=== PATIENT | male | born 1945 | race Two or more races ===

== ENCOUNTER 2016-12-28 08:37 | Emergency (ER) | payer MEDICARE, OTHER ==
[~2016-12-28] VITALS: Ht 175.3 cm; Wt 61.6 kg
[~2016-12-28 08:37] MED LIST: ATOR1TAB18 PO; LISI10TA3 PO; METF500T PO; METO25TA3 PO; PLAV75TA29 PO
[2016-12-28 08:44] VITALS: BP 141/79; PULSE 72; RESP 16; TEMP 96.8; O2SAT 99
[2016-12-28] MEDS ORDERED: BUSP5TAB PO (09:11)
--- NOTE | 2016-12-28 09:14 | PD ---
HPI . Trip and fall Chief Complaint: Fall Time Seen by Provider: 09:03 Travel History International Travel<30 days: No Contact w/Intl Traveler<30days: No Traveled to known affect area: No History of Present Illness HPI Patient suffered a mechanical fall yesterday. He landed on his face. He states his dentures broke and cut his mouth. His main concern is continued bleeding from his mouth. He is on Plavix. Bleeding has been unrelieved by gauze. Bleeding has been mild but continuous. Tetanus is up-to-date. He also has some pain and swelling of the left cheek and some neck pain. PFSH Past Medical History Hx Anticoagulant Therapy: Yes Arthritis: No Autoimmune Disease: No Anxiety: Yes Heart Rhythm Problems: No Cancer: No Cardiac Catheterization: Yes Cardiovascular Problems: Yes (htn on meds, MD , 4 vessel bypass) High Cholesterol: Yes Chest Pain: Yes Congestive Heart Failure: No Cerebrovascular Accident: Yes (cva) Coronary Artery Disease: Yes Diabetes: Yes Patient Takes Glucophage: Yes Diminished Hearing: No Endocrine: Yes Gastrointestinal Disorders: Yes GERD: Yes (takes Zantac PRN) Glaucoma: No Genitourinary: No Headaches: No Hepatitis: No Hiatal Hernia: No Hypertension: Yes Immune Disorder: No Implanted Vascular Access Dvce: No Musculoskeletal: Yes Neurologic: Yes Psychiatric: No Reproductive: No Respiratory: No Integumentary: No Migraines: No Myocardial Infarction: Yes (x1) Seizures: No Thyroid Disease: No Ulcer: No Tetanus Vaccination: < 5 Years Influenza Vaccination: Yes Past Surgical History Abdominal Surgery: No Cardiac Surgery: Yes (CABG 2000 and cardiac stent 2013) Coronary Artery Bypass Graft: Yes (x4) Coronary Stent: Yes (x1) Ear Surgery: No Endocrine Surgery: No Eye Surgery: No Genitourinary Surgery: No Gynecologic Surgery: No Neurologic Surgery: No Oral Surgery: No Thoracic Surgery: No Other Surgery: Yes Family History Family Myocardial Infarction: Yes Social History Alcohol Use: No Tobacco Use: No (years ago hx of cigs) Substance Use: No Allergies-Medications (Allergen,Severity, Reaction): Coded Allergies: No Known Allergies (Verified , 12/28/16) Reported Meds & Prescriptions Reported Meds & Active Scripts Active Reported Buspirone (Buspirone HCl) 5 Mg Tab 5 Mg PO BID Metoprolol Tartrate 25 Mg Tab 25 Mg PO BID Metformin (Metformin HCl) 500 Mg Tab 250 Mg PO BIDPC With meals Lisinopril 10 Mg Tab 10 Mg PO DAILY Plavix (Clopidogrel Bisulfate) 75 Mg Tab 75 Mg PO DAILY Review of Systems Except as stated in HPI: all other systems reviewed are Neg Eyes: No: Blurred Vision HENT: Positive: Gingival Bleeding, No: Nosebleed Gastrointestinal: No: Nausea, Vomiting Neurologic: No: Syncope, Focal Abnormalities, Headache, Change in Mentation, Slurred Speech Physical Exam Narrative GENERAL: Awake and alert and in no acute distress. SKIN: Warm and dry. HEAD: Swelling of the left cheek. Fresh blood in the oropharynx. No diffuse bleeding. EYES: Pupils equal and round. NECK: Trachea midline. C-spine is immobilized with a [place] collar. CARDIOVASCULAR: Regular rate and rhythm. RESPIRATORY: No accessory muscle use. MUSCULOSKELETAL: No obvious deformities. No edema. NEUROLOGICAL: Awake and alert. No obvious cranial nerve deficits. Motor grossly within normal limits. Normal speech. PSYCHIATRIC: Appropriate mood and affect; insight and judgment normal. Data Data Last Documented VS Vital Signs Date Time Temp Pulse Resp B/P Pulse Ox O2 Delivery O2 Flow Rate FiO2 12/28/16 08:44 96.8 72 16 141/[address] Cerv Spine W/O Contrast (12/28/16 09:04) Ct Facial Bones W/O Iv Cont (12/28/16 09:04) MDM Medical Decision Making Medical Screen Exam Complete: Yes Emergency Medical Condition: Yes Differential Diagnosis Differential diagnosis of facial trauma includes but is not limited to soft tissue contusion, abrasions, laceration, nasal fracture, orbital fracture, zygomatic fracture Narrative Course Patient presents for evaluation of injuries sustained in a fall yesterday. His main concern is continued oral bleeding. His dentures were broken in the fall causing a cut in the mouth. He also has an injury to the left cheek and is complaining with neck pain. He does not have any neurological complaints. Last Impressions Maxillofacial CT 12/28/16903 Signed Impressions: Service Date/Time: Wednesday, December 28, 2016 09:24 - CONCLUSION: 1. Left-sided facial and periorbital soft tissue swelling. 2. No orbital or facial fracture. Leon Whitley MD Cervical Spine CT 12/28/16903 Signed Impressions: Service Date/Time: Wednesday, December 28, 2016 09:24 - CONCLUSION: 1. Multilevel degenerative change without fracture. 2. Kyphoscoliosis. 3. Heterogeneous thyroid gland with bilateral thyroid nodules. Followup outpatient thyroid sonogram may be warranted. Leon Whitley MD His oral bleeding persists but is mild. I have instructed the patient and his family to use cool substances in his mouth such as popsicles. Continue teabags. The patient has a prescription for Lortab at home. Diagnosis Primary Impression: Facial contusion Qualified Code: S00.83XA - Facial contusion, initial encounter Additional Impressions: Laceration of oral cavity Qualified Code: S01.512A - Laceration of oral cavity, initial encounter Neck strain Qualified Code: S16.1XXA - Neck strain, initial encounter Patient Instructions: Facial Contusion (ED), General Instructions Additional Instructions: Follow-up with her primary care physician for further evaluation of your thyroid. Disposition: 01 DISCHARGE HOME Condition: Stable Sanaz Pro MD December 28, 2016 09:14
--- NOTE | 2016-12-28 09:52 | RADHPO ---
EXAM DATE/TIME: 12/28/2016 09:24 [facility] COMPARISON: No previous studies available for comparison. INDICATIONS : Trauma; pain after fall yesterday. RADIATION DOSE: 23.74 CTDIvol (mGy) MEDICAL HISTORY : Hypertension. Cardiovascular disease SURGICAL HISTORY : None. ENCOUNTER: Initial ACUITY: 1 day PAIN SCALE: 5/10 LOCATION: Bilateral neck TECHNIQUE: Volumetric scanning of the cervical spine was performed. Multiplanar reconstructions in the sagittal, coronal and oblique axial planes were performed. Using automated exposure control and adjustment o f the mA and/or kV according to patient size, radiation dose was kept as low as reasonably achievable to obtain optimal diagnostic quality images. FINDINGS: VERTEBRAE: Normal vertebral body height. Mild degenerative changes C4-C7. No fracture. Minimal sclerosis of the tip of the dens. Scoliosis and kyphosis. ALIGNMENT: No evidence of subluxation. Heterogeneous thyroid gland containing bilateral thyroid nodules C2-C3: The bony spinal canal is normal in size. No evidence of disc bulge or herniation. The neural forami na are bilaterally patent. C3-C4: Small central protrusion without canal stenosis. The neural foramina are bilaterally patent. C4-C5: Small left-sided posterior disc osteophyte complex without canal stenosis. The neural foramina are b ilaterally patent. C5-C6: Mild generalized disc osteophyte complex without canal stenosis. The neural foramina are bilaterally patent. C6-C7: The bony spinal canal is normal in size. No evidence of disc bulge or herniation. The neural forami na are bilaterally patent. C7-T1: The bony spinal canal is normal in size. No evidence of disc bulge or herniation. The neural forami na are bilaterally patent. CONCLUSION: 1. Multilevel degenerative change without fracture. 2. Kyphoscoliosis. 3. Heterogeneous thyroid gland with bilateral thyroid nodules. Followup outpatient thyroid sonogram m ay be warranted. Leon Whitley MD on December 28, 2016 at 9:46 Board Certified Radiologist. This report was verified electronically.
--- NOTE | 2016-12-28 10:04 | RADHPO ---
EXAM DATE/TIME: 12/28/2016 09:24 [facility] COMPARISON: No previous studies available for comparison. INDICATIONS : Trauma; pain after fall yesterday. RADIATION DOSE: 25.62 CTDIvol (mGy) MEDICAL HISTORY : Hypertension. Cardiovascular disease SURGICAL HISTORY : None. ENCOUNTER: Initial ACUITY: 1 day PAIN SCORE: 5/10 LOCATION: Bilateral facial TECHNIQUE: Volumetric scanning of the facial bones was performed. Using automated exposure control and adjustme nt of the mA and/or kV according to patient size, radiation dose was kept as low as reasonably achiev able to obtain optimal diagnostic quality images. FINDINGS: ORBITS: The orbital and infraorbital osseous structures are intact. The retroconal structures have a normal configuration. No radiopaque foreign bodies are seen. NASAL BONE: The nasal bone and maxillary spine are intact ZYGOMATIC ARCHES: Symmetric without evidence of fracture. SINUSES: The maxillary, ethmoid and frontal sinuses are intact. No air-fluid levels seen. NASAL CAVITY: The nasal septum is intact and midline. The lacrimal ducts are intact. SOFT TISSUES: No radiopaque foreign bodies seen. Left-sided facial and periorbital soft-tissue swelling is seen. INTRACRANIAL: No intracranial air seen. CRIBIFORM PLATE: Grossly intact. CONCLUSION: 1. Left-sided facial and periorbital soft tissue swelling. 2. No orbital or facial fracture. Leon Whitley MD on December 28, 2016 at 9:59 Board Certified Radiologist. This report was verified electronically.
== END 2016-12-28 10:45 | disposition home or self-care (01) ==
LOC: PHEFT 08:37
DX: S01.512A Laceration without foreign body of oral cavity, initial encounter (principal); S00.83XA Contusion of other part of head, initial encounter; S16.1XXA Strain of muscle, fascia and tendon at neck level, initial encounter; I10 Essential (primary) hypertension; E11.9 Type 2 diabetes mellitus without complications; I25.10 Atherosclerotic heart disease of native coronary artery without angina pectoris; I25.2 Old myocardial infarction; E78.00 Pure hypercholesterolemia, unspecified; Z79.01 Long term (current) use of anticoagulants; Z86.73 Personal history of transient ischemic attack (TIA), and cerebral infarction without residual deficits; Z79.4 Long term (current) use of insulin; Z95.1 Presence of aortocoronary bypass graft; W18.39XA Other fall on same level, initial encounter; W26.8XXA Contact with other sharp object(s), not elsewhere classified, initial encounter; Y93.89 Activity, other specified; Y92.89 Other specified places as the place of occurrence of the external cause; Y99.8 Other external cause status
CPT/HCPCS: 70486; 72125